=== PATIENT | male | born 1960 | race Caucasian/White ===

== ENCOUNTER 2018-09-30 17:13 | Emergency (ER) | payer BC ==
[~2018-09-30] VITALS: Ht 175.3 cm; Wt 86.2 kg
[2018-09-30 17:14] VITALS: Ht 175.3 cm; Wt 86.2 kg
[2018-09-30 17:54] LABS: CALCIUM 8.8 mg/dL (8.5-10.1); CARBON DIOXIDE 27.7 mmol/L (21-32); CHLORIDE SERUM 104 mmol/L (98-107); CREATININE SERUM 1.1 mg/dL (0.7-1.3); GFR1 > 60 mL/min; GLUCOSE SERUM 144 mg/dL (74-106); POTASSIUM SERUM 3.8 mmol/L (3.5-5.1); SODIUM SERUM 142 mmol/L (136-145)
[2018-09-30 17:59] LABS: ALBUMIN 4.3 g/dL (3.4-5.0); ALKALINE PHOSPHATASE 97 U/L (46-116); ALT/SGPT 31 U/L (16-63); AST/SGOT 30 U/L (15-37); BILIRUBIN TOTAL 0.57 mg/dL (0.20-1.00); TOTAL PROTEIN, SERUM 7.9 g/dL (6.4-8.2)
[2018-09-30 19:01] LABS: BASOPHIL % 0.2 % (0-2); PLATELET COUNT 200 x10^3mcL (130-400); RED CELL DISTRIBUTION WIDTH 14.2 % (11.5-14.5)
[2018-09-30 19:52] VITALS: BP 141/87
== END 2018-09-30 19:52 | disposition home or self-care (01) ==
LOC: ED 17:13
PROVIDERS: Emergency Medicine
DX: T67.5XXA Heat exhaustion, unspecified, initial encounter (principal); E11.9 Type 2 diabetes mellitus without complications; M25.551 Pain in right hip; X58.XXXA Exposure to other specified factors, initial encounter; Y93.01 Activity, walking, marching and hiking; Y92.89 Other specified places as the place of occurrence of the external cause; Y99.8 Other external cause status
CPT/HCPCS: 83880; J1885; J7030; Q0092

== ENCOUNTER 2018-11-22 23:26 | Inpatient (IN) | payer BC ==
[~2018-11-22] VITALS: Ht 172.7 cm; Wt 84.4 kg
[2018-11-22 23:55] VITALS: Ht 172.7 cm; Wt 84.4 kg
[2018-11-23 02:46] LABS: BASOPHIL % 0.3 % (0-2); PLATELET COUNT 184 x10^3mcL (130-400); RED CELL DISTRIBUTION WIDTH 14.1 % (11.5-14.5)
[2018-11-23] MEDS ORDERED: METFORMIN500 M1 PO (03:03)
[2018-11-23] MEDS ORDERED: GLYBURIDE2.5 MG PO (03:04)
[2018-11-23] MEDS ORDERED: SIMVASTATIN10 M1 PO (03:05)
[2018-11-23 03:06] LABS: CARBON DIOXIDE 27.2 mmol/L (21-32); CHLORIDE SERUM 105 mmol/L (98-107); CREATININE SERUM 0.9 mg/dL (0.7-1.3); GFR1 > 60 mL/min; GLUCOSE SERUM 178 mg/dL (74-106); POTASSIUM SERUM 4.1 mmol/L (3.5-5.1); SODIUM SERUM 142 mmol/L (136-145)
[2018-11-23 03:10] LABS: ALBUMIN 3.9 g/dL (3.4-5.0); ALKALINE PHOSPHATASE 85 U/L (46-116); ALT/SGPT 21 U/L (16-63); AST/SGOT 20 U/L (15-37); BILIRUBIN TOTAL 0.28 mg/dL (0.20-1.00); TOTAL PROTEIN, SERUM 7.3 g/dL (6.4-8.2)
[2018-11-23 03:50] VITALS: BP 136/80
[2018-11-23 04:56] LABS: microscopic required? NO
[2018-11-23 05:06] LABS: urine erythrocyte NEGATIVE (NEGATIVE)
[2018-11-23 06:49] LABS: BASOPHIL % 0.4 % (0-2); PLATELET COUNT 186 x10^3mcL (130-400); RED CELL DISTRIBUTION WIDTH 14.3 % (11.5-14.5)
[2018-11-23 07:30] LABS: CALCIUM 8.7 mg/dL (8.5-10.1); CHLORIDE SERUM 106 mmol/L (98-107); CREATININE SERUM 0.8 mg/dL (0.7-1.3); GFR1 > 60 mL/min; GLUCOSE SERUM 124 mg/dL (74-106); MAGNESIUM 1.8 mg/dL (1.8-2.4); PHOSPHOROUS 3.8 mg/dL (2.5-4.9); POTASSIUM SERUM 4.2 mmol/L (3.5-5.1); SODIUM SERUM 143 mmol/L (136-145)
[2018-11-23 08:36] VITALS: BP 127/71
[2018-11-23 09:05] LABS: MAGNESIUM 1.8 mg/dL (1.8-2.4); PHOSPHOROUS 3.8 mg/dL (2.5-4.9)
[2018-11-23 09:06] LABS: CHOLESTEROL/HDL RATIO 4.2
[2018-11-23 12:31] VITALS: BP 132/78
[2018-11-23 14:48] VITALS: BP 106/69
[2018-11-23 20:00] VITALS: BP 94/56
[2018-11-24 05:24] VITALS: BP 92/52
[2018-11-24 06:50] VITALS: BP 113/67
[2018-11-24 07:07] LABS: BASOPHIL % 0.2 % (0-2); PLATELET COUNT 167 x10^3mcL (130-400); RED CELL DISTRIBUTION WIDTH 13.8 % (11.5-14.5)
[2018-11-24 07:31] LABS: CALCIUM 8.1 mg/dL (8.5-10.1); CARBON DIOXIDE 27.2 mmol/L (21-32); CHLORIDE SERUM 108 mmol/L (98-107); CREATININE SERUM 0.9 mg/dL (0.7-1.3); GFR1 > 60 mL/min; GLUCOSE SERUM 111 mg/dL (74-106); MAGNESIUM 1.9 mg/dL (1.8-2.4); PHOSPHOROUS 3.3 mg/dL (2.5-4.9); SODIUM SERUM 144 mmol/L (136-145)
[2018-11-24 09:26] VITALS: BP 112/67
[2018-11-24 16:51] VITALS: BP 137/67
[2018-11-24 21:36] VITALS: BP 103/58
[2018-11-25 05:03] VITALS: BP 111/60
[2018-11-25 06:58] LABS: CALCIUM 8.1 mg/dL (8.5-10.1); CARBON DIOXIDE 27.6 mmol/L (21-32); CHLORIDE SERUM 104 mmol/L (98-107); GFR1 > 60 mL/min; GLUCOSE SERUM 107 mg/dL (74-106); MAGNESIUM 1.9 mg/dL (1.8-2.4); PHOSPHOROUS 3.5 mg/dL (2.5-4.9); SODIUM SERUM 138 mmol/L (136-145)
[2018-11-25 07:31] LABS: BASOPHIL % 0.3 % (0-2); PLATELET COUNT 165 x10^3mcL (130-400); RED CELL DISTRIBUTION WIDTH 13.6 % (11.5-14.5)
[2018-11-25 09:51] VITALS: BP 114/63
[2018-11-25 20:06] VITALS: BP 105/60
[2018-11-25 22:17] VITALS: BP 122/70
[2018-11-26 05:20] VITALS: BP 100/55
[2018-11-26 07:04] LABS: CALCIUM 7.7 mg/dL (8.5-10.1); CARBON DIOXIDE 25.5 mmol/L (21-32); CHLORIDE SERUM 104 mmol/L (98-107); CREATININE SERUM 0.9 mg/dL (0.7-1.3); GFR1 > 60 mL/min; GLUCOSE SERUM 137 mg/dL (74-106); MAGNESIUM 1.8 mg/dL (1.8-2.4); PHOSPHOROUS 2.6 mg/dL (2.5-4.9); POTASSIUM SERUM 3.8 mmol/L (3.5-5.1); SODIUM SERUM 136 mmol/L (136-145)
[2018-11-26 07:27] LABS: BASOPHIL % 0.1 % (0-2); PLATELET COUNT 154 x10^3mcL (130-400); RED CELL DISTRIBUTION WIDTH 13.8 % (11.5-14.5)
[2018-11-26 10:08] VITALS: BP 98/50
[2018-11-26] MEDS ORDERED: APAP/HYDROCODON1 T13 PO (12:08)
[2018-11-26 12:16] VITALS: BP 98/50
== END 2018-11-26 14:30 | disposition home or self-care (01) | DRG 494 ==
LOC: ED 23:26 → MU 11-23 02:17
PROVIDERS: Emergency Medicine; ADMIT Internal Medicine
PROC: 2W3QX1Z Immobilization of Right Lower Leg using Splint (ICD-10-PCS; principal; 2018-11-23)
PROC: 0QSJ04Z Reposition Right Fibula with Internal Fixation Device, Open Approach (ICD-10-PCS; 2018-11-25)
PROC: 0QSG04Z Reposition Right Tibia with Internal Fixation Device, Open Approach (ICD-10-PCS; 2018-11-25)
DX: S82.851A Displaced trimalleolar fracture of right lower leg, initial encounter for closed fracture (principal); S93.04XA Dislocation of right ankle joint, initial encounter; W18.39XA Other fall on same level, initial encounter; E78.00 Pure hypercholesterolemia, unspecified; E11.40 Type 2 diabetes mellitus with diabetic neuropathy, unspecified; R58 Hemorrhage, not elsewhere classified; E11.65 Type 2 diabetes mellitus with hyperglycemia; Y93.89 Activity, other specified; Y92.89 Other specified places as the place of occurrence of the external cause; Z79.84 Long term (current) use of oral hypoglycemic drugs; Z79.899 Other long term (current) drug therapy; Y99.8 Other external cause status; Z72.89 Other problems related to lifestyle; Z83.3 Family history of diabetes mellitus; Z82.0 Family history of epilepsy and other diseases of the nervous system; Z80.1 Family history of malignant neoplasm of trachea, bronchus and lung; Z82.49 Family history of ischemic heart disease and other diseases of the circulatory system
CPT/HCPCS: 76001; 82962; C1713; J0690; J2001; J2250; J2270; J2405; J3010; J3490; J7030; Q0092